=== PATIENT | male | born 1995 | race Caucasian/White ===

== ENCOUNTER → 2018-06-07 | Outpatient (CLI) | payer SELFPAY | END | disposition home or self-care (01) | LOC: LAB SHORT 14:24 → LAB 14:24 | DX: N34.2 Other urethritis (principal) | CPT/HCPCS: 87070; 87077; 87185; 87205 ==

== ENCOUNTER → 2022-10-05 | Outpatient (CLI) | payer SELFPAY ==
[2022-10-05 17:17] LABS: Albumin, Blood 6.2 g/dL (3.4-5.0); Albumin/Globulin Ratio 1.5 (0.8-1.8); Bilirubin, Total 1.1 mg/dL (0.1-1.0); Bun/Creatinine Ratio 9.7 (12.0-20.0); Calcium, Blood 11.3 mg/dL (8.5-10.1); Creatinine, Blood 3.9 mg/dL (0.60-1.20); Globulin, Blood 4.1 g/dL (2.2-4.0); Total Protein, Blood 10.3 g/dL (6.4-8.2)
[2022-10-05 18:06] LABS: Hemoglobin 20.3 g/dL (13.5-17.5); Mean Corpuscular HGB Conc 36.7 g/dL (31.5-36.5); Mean Corpuscular Volume 84 fL (80-100); Mean Platelet Volume 11.8 fL (9.1-12.4); Platelet Count 310 K/mm3 (150-400); RDW Coefficient Variation 11.9 % (11.7-14.2); RDW Standard Deviation 35.2 fL (35.1-46.3); Red Blood Cell Count 6.55 M/mm3 (4.30-5.90); White Blood Cell Count 24.35 K/mm3 (4.00-11.30)
[2022-10-05 18:07] LABS: Hematocrit 55.3 % (37.0-53.0)
[2022-10-05 18:27] LABS: BASOPHILS PERCENT MAN 0 % (0-2); EOSINOPHILS PERCENT MAN 0 % (0-6); LYMPHOCYTES PERCENT MAN 7 % (21-46); MONOCYTES ABSOLUTE MAN 0.97 K/mm3 (0.16-1.47); MONOCYTES PERCENT MAN 4 % (4-13); NEUTROPHILS ABSOLUTE MAN 21.67 K/mm3 (1.96-9.15); SEG NEUTROPHILS PERCENT MAN 89 % (41-73); TOTAL CELLS COUNTED 100
== END | disposition home or self-care (01) ==
LOC: LAB 16:53 → LAB SHORT 16:53
PROVIDERS: Family Medicine
DX: R11.2 Nausea with vomiting, unspecified (principal)
CPT/HCPCS: 80053; 85025

== ENCOUNTER → 2022-10-06 | Outpatient (CLI) | payer OTHER ==
[2022-10-06 12:04] LABS: BASOPHILS ABSOLUTE AUTO 0.03 K/mm3 (0.00-0.23); BASOPHILS PERCENT AUTO 0 % (0-2); EOSINOPHILS ABSOLUTE AUTO 0.01 K/mm3 (0.00-0.68); EOSINOPHILS PERCENT AUTO 0 % (0-6); Hematocrit 45.6 % (37.0-53.0); Hemoglobin 16.8 g/dL (13.5-17.5); IMMATURE GRAN ABSOLUTE AUTO 0.07 K/mm3 (0.00-0.10); IMMATURE GRAN PERCENT AUTO 1 % (0-1); LYMPHOCYTES ABSOLUTE AUTO 2.48 K/mm3 (0.84-5.20); LYMPHOCYTES PERCENT AUTO 17 % (21-46); MONOCYTES ABSOLUTE AUTO 1.43 K/mm3 (0.16-1.47); MONOCYTES PERCENT AUTO 10 % (4-13); Mean Corpuscular HGB 31.8 pg (26.0-34.0); Mean Corpuscular HGB Conc 36.8 g/dL (31.5-36.5); Mean Corpuscular Volume 86 fL (80-100); Mean Platelet Volume 10.5 fL (9.1-12.4); NEUTROPHILS ABSOLUTE AUTO 10.88 K/mm3 (1.96-9.15); NEUTROPHILS PERCENT AUTO 73 % (41-73); Platelet Count 275 K/mm3 (150-400); RDW Coefficient Variation 11.9 % (11.7-14.2); RDW Standard Deviation 37.7 fL (35.1-46.3); Red Blood Cell Count 5.29 M/mm3 (4.30-5.90)
[2022-10-06 12:13] LABS: Bun/Creatinine Ratio 21.3 (12.0-20.0); Calcium, Blood 9.3 mg/dL (8.5-10.1); Creatinine, Blood 1.5 mg/dL (0.60-1.20); Potassium, Blood 3.5 mmol/L (3.5-5.5)
== END | disposition home or self-care (01) ==
LOC: LAB 11:59 → LAB SHORT 11:59
PROVIDERS: Family Medicine
DX: R11.2 Nausea with vomiting, unspecified (principal)
CPT/HCPCS: 80048; 85025

== ENCOUNTER 2023-10-16 22:47 | Emergency (ER) | payer SELFPAY ==
[~2023-10-16] VITALS: Ht 193 cm; Wt 88.5 kg
[2023-10-16 22:47] VITALS: BP 136/91
[2023-10-17] MEDS ORDERED: Ketorolac Tromethamine 10 MG Tab PO ONE ×2 (00:30)
== END 2023-10-17 00:34 | disposition home or self-care (01) ==
LOC: ER 22:47
DX: M25.562 Pain in left knee (principal); Z76.5 Malingerer [conscious simulation]; Z59.01 Sheltered homelessness; Y04.2XXA Assault by strike against or bumped into by another person, initial encounter
CPT/HCPCS: 99283; A9270

== ENCOUNTER 2023-11-06 10:17 | Emergency (ER) | payer OTHER ==
[~2023-11-06] VITALS: Ht 172.7 cm; Wt 74.8 kg
[~2023-11-06 10:17] MED LIST: CEPH500 PO
[2023-11-06 10:56] VITALS: BP 129/90
[2023-11-06] MEDS ORDERED: Cephalexin Monohydrate 500 MG Cap PO ONE (11:00)
[2023-11-06] MEDS ORDERED: Ibuprofen 400 MG Tab PO ONE (11:00)
== END 2023-11-06 13:00 | disposition home or self-care (01) ==
LOC: ER 10:17
DX: S90.821D Blister (nonthermal), right foot, subsequent encounter (principal); S90.822D Blister (nonthermal), left foot, subsequent encounter; Z59.00 Homelessness unspecified; X58.XXXD Exposure to other specified factors, subsequent encounter
CPT/HCPCS: A9270

== ENCOUNTER 2023-11-07 09:52 | Emergency (ER) | payer OTHER ==
[~2023-11-07] VITALS: Ht 188 cm; Wt 81.7 kg
[2023-11-07 10:06] VITALS: BP 122/95
[2023-11-07] MEDS ORDERED: Cephalexin Monohydrate 500 MG Cap PO ONE (10:30)
== END 2023-11-07 10:42 | disposition home or self-care (01) ==
LOC: ER 09:52
DX: S90.821D Blister (nonthermal), right foot, subsequent encounter (principal); S90.822D Blister (nonthermal), left foot, subsequent encounter; X58.XXXD Exposure to other specified factors, subsequent encounter; Z59.00 Homelessness unspecified
CPT/HCPCS: A9270

== ENCOUNTER 2024-01-18 13:34 | Emergency (ER) | payer OTHER ==
[~2024-01-18] VITALS: Ht 177.8 cm; Wt 77.1 kg
[2024-01-18 13:50] VITALS: BP 118/84
== END 2024-01-18 14:01 | disposition home or self-care (01) ==
LOC: ER 13:34
DX: M79.602 Pain in left arm (principal)
CPT/HCPCS: 99283

== ENCOUNTER 2024-02-14 18:37 | Emergency (ER) | payer OTHER ==
[~2024-02-14] VITALS: Ht 185.4 cm; Wt 81.7 kg
[2024-02-14 19:00] VITALS: BP 124/92
[2024-02-14] MEDS ORDERED: Ondansetron 8 MG SoluTab SL ONE (19:10)
[2024-02-14 20:14] LABS: Albumin, Blood 5.2 g/dL (3.4-5.0); Albumin/Globulin Ratio 1.2 (0.8-1.8); Bilirubin, Total 1.1 mg/dL (0.1-1.0); Bun/Creatinine Ratio 20.4 (12.0-20.0); Calcium, Blood 10.3 mg/dL (8.5-10.1); Creatinine, Blood 1.47 mg/dL (0.60-1.20); Globulin, Blood 4.2 g/dL (2.2-4.0); Potassium, Blood 5.1 mmol/L (3.5-5.5); Total Protein, Blood 9.4 g/dL (6.4-8.2)
[2024-02-14 23:27] LABS: Source, Urine Clean Catch
[2024-02-14 23:29] LABS: Blood, Urine 1+ (Neg); Glucose Qualitative, Urine Neg (Neg); Ketones, Urine 3+ (Neg); Leukocyte Esterase, Urine 1+ (Neg); Nitrite, Urine Neg (Neg); Protein, Urine 2+ (Neg); Urobilinogen, Urine 1+ (Normal)
[2024-02-14] MEDS ORDERED: Ondansetron HCl 2 MG / ML 2ML Vial IV ONE (23:40)
[2024-02-14 23:41] LABS: Appearance, Urine Hazy (Clear); Bilirubin, Urine 1+ (Neg); Color, Urine Amber (P-Yellow)
[2024-02-14 23:42] LABS: Amorphous Mod (0-Heavy); Bacteria Rare /hpf; Granular Casts TNTC /lpf (0); Red Blood Cells, Urine 0-2 /hpf (0-2); Squamous Epithelial Cells Not Seen /hpf (Few); White Blood Cells, Urine 0-2 /hpf (0-5)
[2024-02-14 23:43] LABS: U Amphetamine Screen DETECTED; U Barbituate Screen Not Detected; U Benzodiazapine Screen Not Detected; U Buprenorphine Screen Not Detected; U Cannabinoids Screen DETECTED; U Cocaine Screen Not Detected; U Methadone Screen Not Detected; U Methamphetamine Screen DETECTED; U Opiates Screen DETECTED; U Oxycodone Screen Not Detected; U Phencyclidine Screen Not Detected
[2024-02-15] MEDS ORDERED: Ibuprofen 600 MG Tab PO ONE (00:35)
[2024-02-15] MEDS ORDERED: NS 1,000 ML IV SCH (00:40)
[2024-02-15 00:58] LABS: BASOPHILS ABSOLUTE AUTO 0.03 K/mm3 (0.00-0.23); BASOPHILS PERCENT AUTO 0 % (0-2); EOSINOPHILS ABSOLUTE AUTO 0.03 K/mm3 (0.00-0.68); EOSINOPHILS PERCENT AUTO 0 % (0-6); Hematocrit 51.6 % (37.0-53.0); Hemoglobin 17.9 g/dL (13.5-17.5); IMMATURE GRAN ABSOLUTE AUTO 0.08 K/mm3 (0.00-0.10); IMMATURE GRAN PERCENT AUTO 1 % (0-1); LYMPHOCYTES ABSOLUTE AUTO 1.33 K/mm3 (0.84-5.20); LYMPHOCYTES PERCENT AUTO 8 % (21-46); MONOCYTES ABSOLUTE AUTO 0.68 K/mm3 (0.16-1.47); MONOCYTES PERCENT AUTO 4 % (4-13); Mean Corpuscular HGB 31.2 pg (26.0-34.0); Mean Corpuscular HGB Conc 34.7 g/dL (31.5-36.5); Mean Corpuscular Volume 90 fL (80-100); Mean Platelet Volume 10.3 fL (9.1-12.4); NEUTROPHILS PERCENT AUTO 87 % (41-73); Platelet Count 270 K/mm3 (150-400); RDW Coefficient Variation 11.7 % (11.7-14.2); RDW Standard Deviation 38.4 fL (35.1-46.3); Red Blood Cell Count 5.74 M/mm3 (4.30-5.90); White Blood Cell Count 16.75 K/mm3 (4.00-11.30)
== END 2024-02-15 01:42 | disposition home or self-care (01) ==
LOC: ER 18:37
PROVIDERS: Emergency Medicine
DX: R11.2 Nausea with vomiting, unspecified (principal); E86.0 Dehydration; F15.90 Other stimulant use, unspecified, uncomplicated; F31.9 Bipolar disorder, unspecified; F41.9 Anxiety disorder, unspecified; Z59.00 Homelessness unspecified
CPT/HCPCS: 36415; 74018; 80053; 81001; 83690; 85025; 96374; 99284-25; A9270; J2405; J7030

== ENCOUNTER 2024-02-23 19:38 | Emergency (ER) | payer OTHER ==
[~2024-02-23] VITALS: Ht 188 cm; Wt 80.7 kg
[2024-02-23 19:48] VITALS: BP 132/89
[2024-02-23] MEDS ORDERED: Ketorolac Tromethamine 15mg Vial IM ONE (22:50)
[2024-02-23] MEDS ORDERED: Lidocaine 4% 1 Patch TOP ONE (22:55)
== END 2024-02-23 23:10 | disposition home or self-care (01) ==
LOC: ER 19:38
DX: M54.41 Lumbago with sciatica, right side (principal)
CPT/HCPCS: 96372; 99283-25; A9270; J1885

== ENCOUNTER 2024-04-12 20:09 | Emergency (ER) | payer OTHER ==
[~2024-04-12] VITALS: Ht 185.4 cm; Wt 78.0 kg
[2024-04-12 21:17] VITALS: BP 117/74
== END 2024-04-12 21:24 | disposition home or self-care (01) ==
LOC: ER 20:09
DX: F41.9 Anxiety disorder, unspecified (principal); L98.9 Disorder of the skin and subcutaneous tissue, unspecified; F17.200 Nicotine dependence, unspecified, uncomplicated
CPT/HCPCS: 99283

== ENCOUNTER 2024-08-12 21:50 | Emergency (ER) | payer OTHER ==
[~2024-08-12] VITALS: Ht 190.5 cm; Wt 79.8 kg
[2024-08-12 22:19] VITALS: BP 112/56
[2024-08-12] MEDS ORDERED: Buspirone HCl15 MG PO (22:23)
[2024-08-12] MEDS ORDERED: OLANZAPINE5 M1 PO (22:24)
[2024-08-13] MEDS ORDERED: ACET500 PO (00:12)
[2024-08-13] MEDS ORDERED: IBUP600 PO (00:12)
[2024-08-13] MEDS ORDERED: Ibuprofen 600 MG Tab PO ONE (00:20)
[2024-08-13] MEDS ORDERED: Acetaminophen 500 MG Tab PO ONE (00:20)
== END 2024-08-13 00:41 | disposition home or self-care (01) ==
LOC: ER 21:50
DX: S40.812A Abrasion of left upper arm, initial encounter (principal); F17.200 Nicotine dependence, unspecified, uncomplicated; V09.20XA Pedestrian injured in traffic accident involving unspecified motor vehicles, initial encounter
CPT/HCPCS: 73080; 73090; 99283-25; A9270

== ENCOUNTER 2024-09-23 17:47 | Emergency (ER) | payer OTHER ==
[~2024-09-23] VITALS: Ht 185.4 cm; Wt 83.0 kg
[~2024-09-23 17:47] MED LIST changes: +ACET500 PO; +Buspirone HCl15 MG PO; +IBUP600 PO; +OLANZAPINE5 M1 PO
[2024-09-23 18:12] VITALS: BP 95/67
== END 2024-09-23 18:38 | disposition home or self-care (01) ==
LOC: ER 17:47
DX: T21.21XA Burn of second degree of chest wall, initial encounter (principal); T31.0 Burns involving less than 10% of body surface; F17.210 Nicotine dependence, cigarettes, uncomplicated; X08.8XXA Exposure to other specified smoke, fire and flames, initial encounter; Z79.899 Other long term (current) drug therapy
CPT/HCPCS: 16020; 99282-25

== ENCOUNTER 2024-12-21 14:44 | Emergency (ER) | payer OTHER ==
[~2024-12-21] VITALS: Ht 182.9 cm; Wt 83.9 kg
[2024-12-21 14:59] VITALS: BP 113/80
[2024-12-21 15:17] LABS: Source, Urine Clean Catch
[2024-12-21 15:22] LABS: Bilirubin, Urine Neg (Neg); Color, Urine Yellow (P-Yellow); Glucose Qualitative, Urine Neg (Neg); Ketones, Urine Neg (Neg); Leukocyte Esterase, Urine Neg (Neg); Protein, Urine Neg (Neg); Specific Gravity, Urine 1.010 (1.003-1.022); Urobilinogen, Urine NORM (Normal)
[2024-12-21 15:48] LABS: BASOPHILS ABSOLUTE AUTO 0.02 K/mm3 (0.00-0.23); BASOPHILS PERCENT AUTO 0 % (0-2); EOSINOPHILS ABSOLUTE AUTO 0.03 K/mm3 (0.00-0.68); EOSINOPHILS PERCENT AUTO 0 % (0-6); Hematocrit 44.4 % (37.0-53.0); Hemoglobin 16.2 g/dL (13.5-17.5); IMMATURE GRAN ABSOLUTE AUTO 0.02 K/mm3 (0.00-0.10); IMMATURE GRAN PERCENT AUTO 0 % (0-1); LYMPHOCYTES ABSOLUTE AUTO 1.59 K/mm3 (0.84-5.20); LYMPHOCYTES PERCENT AUTO 20 % (21-46); MONOCYTES ABSOLUTE AUTO 0.47 K/mm3 (0.16-1.47); MONOCYTES PERCENT AUTO 6 % (4-13); Mean Corpuscular HGB Conc 36.5 g/dL (31.5-36.5); Mean Corpuscular Volume 86 fL (80-100); NEUTROPHILS ABSOLUTE AUTO 5.67 K/mm3 (1.96-9.15); NEUTROPHILS PERCENT AUTO 73 % (41-73); NRBC ABSOLUTE 0.00 K/mm3 (0.00-0.02); NRBC Auto 0.0 /100 WBC (0.0-0.2); Platelet Count 235 K/mm3 (150-400); RDW Coefficient Variation 11.4 % (11.7-14.2); RDW Standard Deviation 35.1 fL (35.1-46.3)
[2024-12-21 15:55] LABS: Alanine Aminotransfer (ALT/SGP 15.0 U/L (12-78); Albumin, Blood 4.1 g/dL (3.4-5.0); Albumin/Globulin Ratio 1.4 (0.8-1.8); Anion Gap 9.0 mmol/L (3-11); Aspartate Aminotrans (AST/SGOT 16.0 U/L (12-37); Bilirubin, Total 0.4 mg/dL (0.1-1.0); Blood Urea Nitrogen 11.0 mg/dL (8-24); CO2, Blood 23.0 mmol/L (21-32); Calcium, Blood 8.7 mg/dL (8.5-10.1); Chloride, Blood 109.0 mmol/L (98-108); Creatinine, Blood 0.78 mg/dL (0.60-1.20); Globulin, Blood 2.9 g/dL (2.2-4.0); Glucose, Blood 99.0 mg/dL (70-99); Potassium, Blood 3.9 mmol/L (3.5-5.5); Sodium, Blood 137.0 mmol/L (136-145); Total Protein, Blood 7.0 g/dL (6.4-8.2)
[2024-12-21] MEDS ORDERED: IBUP800 PO (16:53)
[2024-12-21] MEDS ORDERED: Robaxin750 MG PO (16:53)
== END 2024-12-21 17:06 | disposition home or self-care (01) ==
LOC: ER 14:44
PROVIDERS: Physician Assistant
DX: M54.50 Low back pain, unspecified (principal); Z59.89 Other problems related to housing and economic circumstances; Z79.899 Other long term (current) drug therapy
CPT/HCPCS: 74177; 80053; 81003; 83690; 85025; 99284-25; A9270; Q9967

== ENCOUNTER 2024-12-23 11:16 | Emergency (ER) | payer OTHER ==
[~2024-12-23] VITALS: Ht 188 cm; Wt 81.7 kg
[~2024-12-23 11:16] MED LIST changes: +IBUP800 PO; +Robaxin750 MG PO
[2024-12-23] MEDS ORDERED: Morphine Sulfate 4 MG/1 ML Injection IV ONE (12:30)
[2024-12-23 14:48] LABS: BASOPHILS ABSOLUTE AUTO 0.03 K/mm3 (0.00-0.23); BASOPHILS PERCENT AUTO 0 % (0-2); EOSINOPHILS ABSOLUTE AUTO 0.04 K/mm3 (0.00-0.68); EOSINOPHILS PERCENT AUTO 1 % (0-6); Hematocrit 52.2 % (37.0-53.0); Hemoglobin 18.9 g/dL (13.5-17.5); IMMATURE GRAN ABSOLUTE AUTO 0.02 K/mm3 (0.00-0.10); IMMATURE GRAN PERCENT AUTO 0 % (0-1); LYMPHOCYTES ABSOLUTE AUTO 1.56 K/mm3 (0.84-5.20); LYMPHOCYTES PERCENT AUTO 19 % (21-46); MONOCYTES ABSOLUTE AUTO 0.54 K/mm3 (0.16-1.47); MONOCYTES PERCENT AUTO 7 % (4-13); Mean Corpuscular HGB Conc 36.2 g/dL (31.5-36.5); Mean Corpuscular Volume 86 fL (80-100); NEUTROPHILS ABSOLUTE AUTO 5.93 K/mm3 (1.96-9.15); NEUTROPHILS PERCENT AUTO 73 % (41-73); NRBC ABSOLUTE 0.00 K/mm3 (0.00-0.02); NRBC Auto 0.0 /100 WBC (0.0-0.2); Platelet Count 253 K/mm3 (150-400); RDW Coefficient Variation 11.4 % (11.7-14.2); RDW Standard Deviation 35.8 fL (35.1-46.3)
[2024-12-23 15:13] LABS: Alanine Aminotransfer (ALT/SGP 15.0 U/L (12-78); Albumin, Blood 4.6 g/dL (3.4-5.0); Albumin/Globulin Ratio 1.4 (0.8-1.8); Anion Gap 8.0 mmol/L (3-11); Aspartate Aminotrans (AST/SGOT 8.0 U/L (12-37); Bilirubin, Total 0.5 mg/dL (0.1-1.0); Blood Urea Nitrogen 13.0 mg/dL (8-24); CO2, Blood 27.0 mmol/L (21-32); Calcium, Blood 9.2 mg/dL (8.5-10.1); Chloride, Blood 107.0 mmol/L (98-108); Creatinine, Blood 0.85 mg/dL (0.60-1.20); Globulin, Blood 3.2 g/dL (2.2-4.0); Glucose, Blood 89.0 mg/dL (70-99); Potassium, Blood 4.0 mmol/L (3.5-5.5); Sodium, Blood 138.0 mmol/L (136-145); Total Protein, Blood 7.8 g/dL (6.4-8.2)
[2024-12-23 15:26] LABS: Source, Urine Clean Catch
[2024-12-23 15:30] LABS: Bilirubin, Urine Neg (Neg); Color, Urine Yellow (P-Yellow); Glucose Qualitative, Urine Neg (Neg); Ketones, Urine 3+ (Neg); Leukocyte Esterase, Urine Neg (Neg); Protein, Urine 1+ (Neg); Specific Gravity, Urine 1.020 (1.003-1.022); Urobilinogen, Urine NORM (Normal)
[2024-12-23] MEDS ORDERED: Ketorolac Tromethamine 15mg Vial IV ONE (19:00)
[2024-12-23] MEDS ORDERED: DICY20 PO (19:15)
[2024-12-23] MEDS ORDERED: LIDO700A20 TOP (19:15)
[2024-12-23] MEDS ORDERED: CYCL10 PO (19:15)
[2024-12-23 19:53] VITALS: BP 109/72
[2024-12-23 22:10] LABS: Chlamydia Trachomatis Urine NOT DETECTED (NOT DETECT); Neisseria Gonorrhoea Urine NOT DETECTED (NOT DETECT)
== END 2024-12-23 20:04 | disposition home or self-care (01) ==
LOC: ER 11:16
PROVIDERS: Emergency Medicine
DX: I86.1 Scrotal varices (principal)
CPT/HCPCS: 76857; 76870; 80053; 83605; 83690; 85025; 87491; 87591; 96374; 96375; 99284-25; J1885; J2270

== ENCOUNTER 2025-02-09 10:37 | Emergency (ER) | payer OTHER ==
[~2025-02-09] VITALS: Ht 190.5 cm; Wt 90.7 kg
[~2025-02-09 10:37] MED LIST changes: +CYCL10 PO; +DICY20 PO; +LIDO700A20 TOP
[2025-02-09 11:25] LABS: BASOPHILS ABSOLUTE AUTO 0.03 K/mm3 (0.00-0.23); BASOPHILS PERCENT AUTO 0 % (0-2); EOSINOPHILS ABSOLUTE AUTO 0.06 K/mm3 (0.00-0.68); EOSINOPHILS PERCENT AUTO 1 % (0-6); Hematocrit 48.9 % (37.0-53.0); Hemoglobin 17.5 g/dL (13.5-17.5); IMMATURE GRAN ABSOLUTE AUTO 0.03 K/mm3 (0.00-0.10); IMMATURE GRAN PERCENT AUTO 0 % (0-1); LYMPHOCYTES ABSOLUTE AUTO 1.89 K/mm3 (0.84-5.20); LYMPHOCYTES PERCENT AUTO 26 % (21-46); MONOCYTES ABSOLUTE AUTO 0.61 K/mm3 (0.16-1.47); MONOCYTES PERCENT AUTO 9 % (4-13); Mean Corpuscular HGB Conc 35.8 g/dL (31.5-36.5); Mean Corpuscular Volume 85 fL (80-100); NEUTROPHILS ABSOLUTE AUTO 4.57 K/mm3 (1.96-9.15); NEUTROPHILS PERCENT AUTO 64 % (41-73); NRBC ABSOLUTE 0.00 K/mm3 (0.00-0.02); NRBC Auto 0.0 /100 WBC (0.0-0.2); Platelet Count 194 K/mm3 (150-400); RDW Coefficient Variation 11.3 % (11.7-14.2); RDW Standard Deviation 35.4 fL (35.1-46.3)
[2025-02-09 11:32] LABS: Source, Urine Clean Catch
[2025-02-09 11:36] LABS: Bilirubin, Urine Neg (Neg); Color, Urine Pale Yellow (P-Yellow); Glucose Qualitative, Urine Neg (Neg); Ketones, Urine Neg (Neg); Leukocyte Esterase, Urine Neg (Neg); Protein, Urine Neg (Neg); Specific Gravity, Urine 1.010 (1.003-1.022); Urobilinogen, Urine NORM (Normal)
[2025-02-09 11:58] LABS: Alanine Aminotransfer (ALT/SGP 24.0 U/L (12-78); Albumin, Blood 4.1 g/dL (3.4-5.0); Albumin/Globulin Ratio 1.4 (0.8-1.8); Anion Gap 6.0 mmol/L (3-11); Aspartate Aminotrans (AST/SGOT 14.0 U/L (12-37); Bilirubin, Total 0.3 mg/dL (0.1-1.0); Blood Urea Nitrogen 12.0 mg/dL (8-24); CO2, Blood 27.0 mmol/L (21-32); Calcium, Blood 8.8 mg/dL (8.5-10.1); Chloride, Blood 110.0 mmol/L (98-108); Creatinine, Blood 0.82 mg/dL (0.60-1.20); Globulin, Blood 3.0 g/dL (2.2-4.0); Glucose, Blood 93.0 mg/dL (70-99); Potassium, Blood 4.2 mmol/L (3.5-5.5); Sodium, Blood 139.0 mmol/L (136-145); Total Protein, Blood 7.1 g/dL (6.4-8.2)
[2025-02-09 12:21] VITALS: BP 117/92
[2025-02-09] MEDS ORDERED: Lidocaine 4% 1 Patch TOP ONE (13:05)
[2025-02-09] MEDS ORDERED: TIZANIDINE HCL2 M1 PO (13:22)
== END 2025-02-09 13:29 | disposition home or self-care (01) ==
LOC: ER 10:37
PROVIDERS: Student in an Organized Health Care Education/Training Program
DX: N45.1 Epididymitis (principal); S39.012A Strain of muscle, fascia and tendon of lower back, initial encounter; X58.XXXA Exposure to other specified factors, initial encounter
CPT/HCPCS: 74177; 76870; 80053; 81003; 83690; 85025; 99284-25; A9270; Q9967